=== PATIENT | male | born 1980 | race Caucasian/White ===

== ENCOUNTER 2020-03-09 10:21 | Inpatient (IN) | payer OTHER ==
[~2020-03-09] VITALS: Ht 177.8 cm; Wt 62.8 kg
[2020-03-09] VITALS (7 sets, daily range): BP systolic 107–133; BP diastolic 69–85; PULSE 90–111; TEMP 98.2–99.4
[~2020-03-09 10:21] MED LIST: DARVOCET N; LEVAQUIN 5500 MG/TAB PO
--- NOTE | 2020-03-09 17:15 | NUR ---
Patient arrived to floor escorted by admissions. Patient was ambulatory and not in visible distress. Father at bedside. Patient is alert and oriented, plesant and cooperative with cares. Denies needs other than pain management, call light within reach.
[2020-03-09 20:10] LABS: COLLECTION METHOD CLEAN CATCH
[2020-03-09 20:17] LABS: MUCOUS Present /lpf; PH 7 (5-8); SQUAMOUS EPITHELIAL None Seen /hpf; URINE APPEARANCE Hazy; URINE BACTERIA None Seen /hpf; URINE BILIRUBIN Negative (NEGATIVE); URINE BLOOD Negative (NEGATIVE); URINE COLOR Yellow; URINE GLUCOSE Negative (NEGATIVE); URINE KETONE Negative (NEGATIVE); URINE LEUKOCYTE ESTERASE Negative (NEGATIVE); URINE NITRATE Negative (NEGATIVE); URINE PROTEIN(semi-quant) Negative (NEGATIVE); URINE RBC 0-2 /hpf; URINE UROBILINOGEN Negative (NEGATIVE)
--- NOTE | 2020-03-09 20:30 | NUR ---
Pt assessment completed and documented. Pt resting in bed at this time. Pt alert and oriented x4. Complaints of generalized sharp abdominal pain throughout abdomen. UNDERWRITING DIRECTOR infusing per orders along with IVF. IV to right forearm CDI. Bowel prep started. Pt denies any needs/concerns at this time. Call light within reach. Will continue to monitor.
[2020-03-09 21:13] LABS: CLOSTRIDIUM DIFF A/B NEG; CLOSTRIDIUM DIFF A/B INTERP No C.diff present
[2020-03-09 21:56] LABS: CALCIUM 8.1 mg/dL (8.4-10.2); CREATININE, serum 0.65 (0.66-1.25); POTASSIUM 3.6 mmol/L (3.4-5.0)
[2020-03-10] VITALS (12 sets, daily range): BP systolic 91–106; BP diastolic 51–75; PULSE 71–100; TEMP 97.6–98.8
--- NOTE | 2020-03-10 00:36 | NUR ---
BLASTING HELPER adjusted at this time per orders from CARLOS Cardenas
--- NOTE | 2020-03-10 06:03 | NUR ---
Pt completed bowel prep earlier this morning. Stools currently watery and clear. PRN zofran given x1 for nausea. Complaints of abdominal pain overnight. TUMBLING AND ROLLING SUPERVISOR infusing per orders. IVF infusing per orders. Pt denies any needs/concerns. Call light within reach
[2020-03-10 06:37] LABS: HEMATOCRIT 43.6 % (42.0-52.0); HEMOGLOBIN 14.6 g/dl (13.5-18.0); MEAN CELL VOLUME 92 fl (80.0-100.0); MEAN CORPUSCULAR HEMOGLOBIN 31 pg (27.0-31.0); MEAN CORPUSCULAR HGB CONC 34 g/dl (33.0-37.0); MEAN PLATELET VOLUME 10.1 fl (7.4-10.4); PLATELET COUNT 335 K/mm3 (130-400); RED BLOOD COUNT 4.76 M/mm3 (4.20-5.60); REDCELL DISTRIBUTION WIDTH-CV 13.7 % (11.5-14.5)
[2020-03-10 06:54] LABS: ALBUMIN 2.8 gm/dL (3.5-5.0); BILIRUBIN,TOTAL 1.4 mg/dL (0.0-1.0); CALCIUM 7.8 mg/dL (8.4-10.2); CREATININE, serum 0.72 (0.66-1.25); MAGNESIUM 1.7 mg/dL (1.6-2.3); POTASSIUM 3.4 mmol/L (3.4-5.0); TOTAL PROTEIN 5.9 gm/dL (6.4-8.2)
[2020-03-10 07:07] LABS: C-REACTIVE PROTEIN 19.3 mg/dL (0.0-0.9)
[2020-03-10 07:23] LABS: BAND 40 % (0-10); EOSINOPHIL 7 % (0-4); LYMPHOCYTE 20 % (20.0-51.0); NEUTROPHILS 25 % (42.0-75.2); PLATELET ESTIMATE NORMAL (NORMAL)
--- NOTE | 2020-03-10 08:16 | NUR ---
Pt assessment complete. Pt laying in bed upon entry, he is drowsy but arouses to voice. He reports continued pain, PROCESSING OPERATOR helping. No N/V reported. Continues to take bowel prep. POC discussed with patient who verbalizes understanding. No needs at this time. Call light within reach.
--- NOTE | 2020-03-10 10:43 | NUR ---
First visit from the digital content coordinator. No needs right now.
--- NOTE | 2020-03-10 13:37 | NUR ---
BRO met with the patient to discuss discharge plan. The patient lives in [place] with his roommates. His father, Levar (ph#[phone]), lives in [place]. He was in [place] for an appointment with his PCP, Dr. Al De La Torre. He reports independence with ADLs and does not have any DME. He receives his medications at [facility]. He reports difficulties affording his meds. The patient is self pay. The patient states that he used to be on disability and have Medicaid, but wanted to work and lost his Medicaid. He states that he is not working now and just re-applied for Medicaid last week at [facility]. BRO presented and explained the Release of Information Forms for Medicaid. The patient signed the forms. BRO updated and provided the forms to Financial Counselor, Katheryn. The patient does not have a DPOA-HC in EMR, but he states that he does have one completed and that he designated his father. He is unsure of where the forms are. The patient is not . He states that he has one child that is [id number]. He states that his mother, Princess, is still alive, but that she is irrelevant and he is not in-contact with her. BRO discussed GoodRx and provided him with a GoodRx discount card. The patient plans to return back to his home in [place] upon discharge. BRO contacted and reviewed the d/c plan with the patient's father, Levar. Levar states that the patient has been in the hospital for awhile now and thinks he will end up being here for a bit too. Levar has no concerns with the patient returning back home, when ready to d/c. Levar confirms that he is the patient's DPOA-HC and that he has the forms somewhere. BRO to continue to follow.
--- NOTE | 2020-03-10 14:50 | NUR ---
Pt down to EGD/Colon at this time.
--- NOTE | 2020-03-10 17:52 | NUR ---
Pt had EGD/Colonoscopy this afternoon. Back on LABORATORY CHEMIST after procedure, continues to have pain 4-7/10. Pt requesting food immediately after procedure. Raymond diet ordered per Dr. palacios. Pt has no other needs at this time. Call light within reach.
--- NOTE | 2020-03-10 19:33 | NUR ---
Pt was lie down on his bed when this nurse went for a bedside handover. Pt looks distress, ELEVATOR SERVICE MECHANIC pump running, and asked for cookies if he can have some. No other needs at this time, will keep monitoring.
--- NOTE | 2020-03-10 22:10 | NUR ---
Pt assessment completed and charted, alert, oriented, NC on 2 lit. BRICK POINTER pump is running without complications, pt stated he always has pain 5/10 even after getting a pain meds. Meds provided as per JUL, tolertaed well. Pt is settled on his bed, call light is on reach. No further needs at this time.
[2020-03-11] VITALS (9 sets, daily range): BP systolic 97–119; BP diastolic 56–80; PULSE 71–84; TEMP 98–98.4
--- NOTE | 2020-03-11 06:02 | NUR ---
Pt slept most of the night. Meds provided as per JUL, PHOTO EQUIPMENT TECHNICIAN pump is running. No further needs at this time.
[2020-03-11 06:27] LABS: BASO # 0.1 (0.0-0.2); BASO % 0.4 % (0.0-2.0); EOS # 0.1 (0.0-0.7); EOS % 0.9 % (0-4.0); GRAN # 12.8 (1.4-6.5); GRAN % 85.7 % (42.2-75.2); HEMATOCRIT 43.1 % (42.0-52.0); HEMOGLOBIN 14.2 g/dl (13.5-18.0); LYMPH # 0.6 (1.2-3.4); LYMPH % 4.1 % (20.0-51.0); MEAN CELL VOLUME 93 fl (80.0-100.0); MEAN CORPUSCULAR HEMOGLOBIN 31 pg (27.0-31.0); MEAN CORPUSCULAR HGB CONC 33 g/dl (33.0-37.0); MEAN PLATELET VOLUME 9.9 fl (7.4-10.4); MONO # 1.2 (0.1-0.6); MONO % 8.1 % (1.7-9.3); PLATELET COUNT 379 K/mm3 (130-400); RED BLOOD COUNT 4.66 M/mm3 (4.20-5.60); REDCELL DISTRIBUTION WIDTH-CV 13.7 % (11.5-14.5)
[2020-03-11 06:39] LABS: ALBUMIN 2.7 gm/dL (3.5-5.0); BILIRUBIN,TOTAL 0.5 mg/dL (0.0-1.0); CALCIUM 7.6 mg/dL (8.4-10.2); CREATININE, serum 0.57 (0.66-1.25); POTASSIUM 3.8 mmol/L (3.4-5.0); TOTAL PROTEIN 5.7 gm/dL (6.4-8.2)
--- NOTE | 2020-03-11 07:02 | NUR ---
Lying in bed in supine position. Rates pain 6/10 in abd, uses ELECTRONIC MUSICAL INSTRUMENT REPAIRER as needed. Patient denies any additional needs or concerns at this time.
--- NOTE | 2020-03-11 10:00 | NUR ---
Patient assisted in shower, IV fluids and ASSORTMENT PLANNER paused. Patient independent in all cares for shower and oral care. Patient returns to bed when done. Reconnected to fluids and ASSORTMENT PLANNER. Rates pain 5/10 in abd. Provided with fresh gatorade. Denies additional needs at this time.
--- NOTE | 2020-03-11 15:18 | NUR ---
Patient to receive Entyvio infusion. Pharmacist was in and spoke with patient regarding potential side effects and the medication in general. Infusion started at this time. This nurse at bedside with the patient. NS and Dilaudid CARE DIRECTOR disconnected while Entyvio infuses.
--- NOTE | 2020-03-11 15:55 | NUR ---
Entyvio infusion complete. Patient denies feeling any adverse reactions. Patient says that he feels good. Reconnected to NS and Dilaudid UROLOGIC NURSE. Denies additional needs at this time.
--- NOTE | 2020-03-11 17:52 | NUR ---
Patient reports having about 5-6 liquidy stools today. Pain has been at about 5-6/10 through day. Continues on Dilaudid CHIEF DIGITAL MEDIA OFFICER. Feels that he did well with the Entyvio, no known reactions. Denies further concerns or needs currently.
--- NOTE | 2020-03-11 20:30 | NUR ---
Pt assessment completed and documented. Pt resting in bed at this time. Alert and oriented x4. Complaints of 5/10 sharp abdominal pain that pt states "is getting better". ELECTROMYOGRAPHIC TECHNICIAN infusing per orders. Scheduled roxicodone given per orders. IV to right forearm CDI. Tele on. Pt denies any needs/ concerns. Call light within reach. Will continue to monitor
[2020-03-12] VITALS (7 sets, daily range): BP systolic 114–137; BP diastolic 73–98; PULSE 68–77; TEMP 97.6–99.1
--- NOTE | 2020-03-12 04:56 | NUR ---
Gave scheduled solumedrol at this time. Pt awake in bed stating he has not hardly slept tonight due to worsening pain and frequent stools. States he has been having 3 to 4 stools an hour since 2300 last night. Pt rating pain 7/10 this morning. Pt given pepsi and saltines per his request. CYBER LEGAL ADVISOR infusing per orders. Denies any other needs/concerns at this time. Call light within reach.
[2020-03-12 06:53] LABS: HEMATOCRIT 39.8 % (42.0-52.0); HEMOGLOBIN 13.4 g/dl (13.5-18.0); MEAN CELL VOLUME 92 fl (80.0-100.0); MEAN CORPUSCULAR HEMOGLOBIN 31 pg (27.0-31.0); MEAN CORPUSCULAR HGB CONC 34 g/dl (33.0-37.0); MEAN PLATELET VOLUME 10.3 fl (7.4-10.4); PLATELET COUNT 370 K/mm3 (130-400); RED BLOOD COUNT 4.31 M/mm3 (4.20-5.60); REDCELL DISTRIBUTION WIDTH-CV 13.5 % (11.5-14.5)
[2020-03-12 07:00] LABS: CALCIUM 7.8 mg/dL (8.4-10.2); CREATININE, serum 0.59 (0.66-1.25); POTASSIUM 3.8 mmol/L (3.4-5.0)
[2020-03-12 08:33] LABS: BAND 22 % (0-10); LYMPHOCYTE 5 % (20.0-51.0); NEUTROPHILS 67 % (42.0-75.2); PLATELET ESTIMATE NORMAL (NORMAL)
[2020-03-12] MEDS ORDERED: ALBUTEROL1.25 MG/3 IH (10:12)
[2020-03-12] MEDS ORDERED: ASPIRIN 81M81 MG/TA2 PO (10:13)
[2020-03-12] MEDS ORDERED: ELIQUIS 5MG PO (10:13)
[2020-03-12] MEDS ORDERED: NORVASC2.5 MG PO (10:13)
[2020-03-12] MEDS ORDERED: LIPITOR 40MG TA40 MG PO (10:13)
[2020-03-12] MEDS ORDERED: COREG12.5 MG PO (10:14)
[2020-03-12] MEDS ORDERED: MASON NATURAL2000 IU PO (10:14)
[2020-03-12] MEDS ORDERED: ZYRTEC5 MG PO (10:14)
[2020-03-12] MEDS ORDERED: ONE-A-DAY ESSE1 EACH PO (10:15)
[2020-03-12] MEDS ORDERED: TRULICITY1.5 MG/0.5 SQ (10:15)
[2020-03-12] MEDS ORDERED: PROZAC 20MG20 MG PO (10:15)
[2020-03-12] MEDS ORDERED: IMODIUM 2MG CAPS2 MG PO (10:16)
[2020-03-12] MEDS ORDERED: FLONASEALLERGY NS (10:16)
[2020-03-12] MEDS ORDERED: GLUCOTROL XL10 MG PO (10:16)
[2020-03-12] MEDS ORDERED: MASON NATURAL1200 MG PO (10:18)
[2020-03-12] MEDS ORDERED: PROTONIX 40MG T40 MG PO (10:18)
[2020-03-12] MEDS ORDERED: KLOR-CON SPRIN10 MEQ PO (10:18)
[2020-03-12] MEDS ORDERED: NATURAL E400 IU PO (10:19)
--- NOTE | 2020-03-12 11:12 | NUR ---
Assessment completed, alert/oriented, vital signs stable, pain is moderate 5/10 but is being controlled fairly well by PAINT PREP TECHNICIAN per patients report, Hospitalist is making some changes to pain management regimen and POC discussed with the patient, abdomen is soft and BS hyperactive, patient reports frequent loose stools over night, he is tolerating PO intake and bland diet well, heart RRR, lungs CTA/ noresp.difficulty, denies other needs at this time will continue to monitor
--- NOTE | 2020-03-12 18:55 | NUR ---
Patient is tolerating diet advancement well, pain med regimen was changed today and FIELD MARKETER was discontinue he is doing well with changes
--- NOTE | 2020-03-12 19:48 | NUR ---
Pt assessment completed and documented. Pt resting in bed at this time watching TV. Pt states he is tolerating diet well. Pt reports good fluid intake. States he is having 2 to 3 bowel movements an hour. Reporting 4/10 pain to his abdomen. PRN dilaudid given by dayshift RN with some relief from pain. Pt denies any needs/ concerns at this time. Call light within reach. Will continue to monitor.
[2020-03-13 03:48] VITALS: BP 125/84; PULSE 60; TEMP 97.9
--- NOTE | 2020-03-13 06:10 | NUR ---
PRN and sheduled pain medication given per orders throughout the night for reports of abdominal pain. Pt continues to have frequent loose stools. Currently resting in bed. Call light within reach
[2020-03-13 06:57] LABS: BASO % 0.3 % (0.0-2.0); GRAN # 10.9 (1.4-6.5); GRAN % 85.1 % (42.2-75.2); HEMATOCRIT 42.4 % (42.0-52.0); HEMOGLOBIN 14.2 g/dl (13.5-18.0); LYMPH # 0.6 (1.2-3.4); LYMPH % 4.4 % (20.0-51.0); MEAN CELL VOLUME 92 fl (80.0-100.0); MEAN CORPUSCULAR HEMOGLOBIN 31 pg (27.0-31.0); MEAN CORPUSCULAR HGB CONC 34 g/dl (33.0-37.0); MEAN PLATELET VOLUME 10.2 fl (7.4-10.4); MONO # 1.2 (0.1-0.6); MONO % 9.5 % (1.7-9.3); PLATELET COUNT 403 K/mm3 (130-400); RED BLOOD COUNT 4.59 M/mm3 (4.20-5.60); REDCELL DISTRIBUTION WIDTH-CV 13.5 % (11.5-14.5)
[2020-03-13 07:15] LABS: ALBUMIN 3.2 gm/dL (3.5-5.0); BILIRUBIN,TOTAL 0.6 mg/dL (0.0-1.0); C-REACTIVE PROTEIN 3.5 mg/dL (0.0-0.9); CALCIUM 8.4 mg/dL (8.4-10.2); CREATININE, serum 0.58 (0.66-1.25); POTASSIUM 4.2 mmol/L (3.4-5.0); TOTAL PROTEIN 6.6 gm/dL (6.4-8.2)
--- NOTE | 2020-03-13 08:01 | NUR ---
Report given to BLANK Yuan
[2020-03-13 08:31] VITALS: BP 129/86; PULSE 74; TEMP 98.3
--- NOTE | 2020-03-13 09:00 | NUR ---
Patient alert and oriented. complained of abdominal pain. gave dilaudid abd roxicodone for pain. Adequate liquid intake. Patient ambulate well around in the room. No further concern at this time.
[2020-03-13 11:56] VITALS: BP 125/89; PULSE 67; TEMP 98.1
--- NOTE | 2020-03-13 15:39 | NUR ---
Patient alert and oriented. continue to complain of abdominal pain. Dilaudid 0.5mg frequency was changed from Q2H to Q6H. Patient agree to this changes. Patient mention he is doing better today. Patient had a shower today. tolerate diet well. continue to have constant diarrhea. ambulate independently in the room. Resting in bed at this time
[2020-03-13 17:15] VITALS: BP 134/89; PULSE 85; TEMP 98
--- NOTE | 2020-03-13 18:48 | NUR ---
IV fluid held because patient is drinking adequate fluid. patient report he had over 10 diarrhea this shift.
[2020-03-13 20:00] VITALS: BP 144/90; PULSE 76; TEMP 98.7
--- NOTE | 2020-03-13 20:30 | NUR ---
Initial shift assessment done- states abd pain 11/21,,understands next pain meds at around 10pm- pt states that is fine--wants the roxicodone and Dilaudid given together so he can sleep--has been having numerous watery,loose stools.
[2020-03-13 23:36] VITALS: BP 131/85; PULSE 75; TEMP 97.9
[2020-03-14 03:32] VITALS: BP 113/82; PULSE 71; TEMP 97.8
--- NOTE | 2020-03-14 05:32 | NUR ---
Has been resting fair throughout the night- had numerous liquid/watery stools during the night. Was medicated for abd pain x2 with Dilaudid/Roxicodone combination
[2020-03-14 06:43] LABS: BASO % 0.2 % (0.0-2.0); GRAN # 10.6 (1.4-6.5); GRAN % 84.7 % (42.2-75.2); HEMOGLOBIN 13.7 g/dl (13.5-18.0); LYMPH # 0.7 (1.2-3.4); LYMPH % 5.2 % (20.0-51.0); MEAN CELL VOLUME 92 fl (80.0-100.0); MEAN CORPUSCULAR HEMOGLOBIN 31 pg (27.0-31.0); MEAN CORPUSCULAR HGB CONC 33 g/dl (33.0-37.0); MEAN PLATELET VOLUME 9.7 fl (7.4-10.4); MONO # 1.2 (0.1-0.6); MONO % 9.3 % (1.7-9.3); PLATELET COUNT 451 K/mm3 (130-400); RED BLOOD COUNT 4.44 M/mm3 (4.20-5.60); REDCELL DISTRIBUTION WIDTH-CV 13.6 % (11.5-14.5)
[2020-03-14 06:45] LABS: CALCIUM 8.1 mg/dL (8.4-10.2); CREATININE, serum 0.59 (0.66-1.25)
[2020-03-14 08:51] VITALS: BP 112/74; PULSE 85; TEMP 98.3
[2020-03-14 11:28] VITALS: BP 124/80; PULSE 75; TEMP 98
[2020-03-14 16:19] VITALS: BP 126/83; PULSE 78; TEMP 98.9
[2020-03-14 19:03] VITALS: BP 135/92; PULSE 77; TEMP 98.9
--- NOTE | 2020-03-14 19:27 | NUR ---
Patient alert and oriented. Continue to complain of abdominal pain. recieve oxicodone and dilaudid for pain. LUIS Ambrocio report that patient will not be transferred at this time. Patient will be monitored for improvement. Imodium was started. One dose was given to patien this shift. Patient ambulating fine on his room.
--- NOTE | 2020-03-14 21:00 | NUR ---
Initial shift assessment done- pt just back from the bathroom- getting very discouraged, states the abd pain is not under control-states 02/21 at this time, having a couple liquid stools every hour--states immodium has never helped-- will call nurse practitioner to see about pain meds more frequent-- did get the dilaudid every 4 hours instead of every 8hr,, pt very appreciative
[2020-03-14 23:48] VITALS: BP 118/76; PULSE 85; TEMP 98.1
[2020-03-15 04:00] VITALS: BP 116/83; PULSE 70; TEMP 98.4
--- NOTE | 2020-03-15 05:10 | NUR ---
Dilaudid given at this time for abd pain 10/22- did have numerous watery/liquid stools during the night. Drinking good amounts of fluids/gatorade. States was able to get more sleep last night since his pain was under better control-
[2020-03-15 06:57] LABS: BASO % 0.2 % (0.0-2.0); GRAN # 7.6 (1.4-6.5); GRAN % 84.8 % (42.2-75.2); HEMATOCRIT 40.1 % (42.0-52.0); HEMOGLOBIN 13.6 g/dl (13.5-18.0); LYMPH # 0.5 (1.2-3.4); LYMPH % 5.9 % (20.0-51.0); MEAN CELL VOLUME 93 fl (80.0-100.0); MEAN CORPUSCULAR HEMOGLOBIN 31 pg (27.0-31.0); MEAN CORPUSCULAR HGB CONC 34 g/dl (33.0-37.0); MEAN PLATELET VOLUME 9.4 fl (7.4-10.4); MONO # 0.7 (0.1-0.6); MONO % 8.2 % (1.7-9.3); PLATELET COUNT 410 K/mm3 (130-400); RED BLOOD COUNT 4.33 M/mm3 (4.20-5.60); REDCELL DISTRIBUTION WIDTH-CV 13.7 % (11.5-14.5)
--- NOTE | 2020-03-15 07:00 | NUR ---
Report received from BLANK Tang. PT in bed resting, denies needs, will continue to monitor.
[2020-03-15 07:07] LABS: CALCIUM 8.1 mg/dL (8.4-10.2); CREATININE, serum 0.55 (0.66-1.25); POTASSIUM 4.2 mmol/L (3.4-5.0)
[2020-03-15 07:26] LABS: C-REACTIVE PROTEIN 1.2 mg/dL (0.0-0.9)
[2020-03-15 08:33] VITALS: BP 135/84; PULSE 90; TEMP 98.6
--- NOTE | 2020-03-15 10:00 | NUR ---
Assessment charted. PT resting in bed, has been resting iwth eyes closed off and on but pt states he doesn't think he slept at all last night or this am. Diaphoretic, still having ltos of output but does not feel imodium helps him at all. BS hyperactive. INT to RFA. Will continue mandy onitor.
[2020-03-15 11:23] VITALS: BP 126/87; PULSE 75; TEMP 98
[2020-03-15 17:01] VITALS: BP 124/83; PULSE 77; TEMP 98.2
--- NOTE | 2020-03-15 18:14 | NUR ---
Pt continues to have pain at 8 or 9/10, stools continue at 3/4 per hour. PRN pain meds given over shift. Will give bedside shift report to nightshift nurse who will resume care.
[2020-03-15 19:49] VITALS: BP 134/86; PULSE 85; TEMP 98.1
--- NOTE | 2020-03-15 20:18 | NUR ---
Pt assessment completed and documented. Pt ambulating in room at this time requesting shower. Pt alert and oriented x4. Complaints of 8/10 pain to abdomen. INT to right forearm CDI. INT wrapped at this time so pt can shower. Linens changed. Pt denies any other needs/concerns. Call light within reach. Will continue to monitor.
[2020-03-16] VITALS: BP 125/80; PULSE 78; TEMP 98.1
[2020-03-16 04:00] VITALS: BP 130/90; PULSE 50; TEMP 98.1
--- NOTE | 2020-03-16 05:21 | NUR ---
Pt states he continues to have frequent stools. PRN diluadid and scheduled roxicodone given for abdominal pain per orders overnight. Currently resting in bed. Call light within reach
[2020-03-16 07:06] VITALS: BP 123/80; PULSE 74; TEMP 98.2
--- NOTE | 2020-03-16 09:29 | NUR ---
Pt awake and alert upon entry, has C/O pain and medications were given for relief, no other issues noted. Shift assessments complete, left Pt call light in reach, bed in lowest position.
[2020-03-16 11:43] VITALS: BP 125/77; PULSE 79; TEMP 97.5
--- NOTE | 2020-03-16 14:41 | NUR ---
BRO met with the patient to follow up. The patient states that he is feeling like crap. He states that he still plans on returning back to his home in [place] upon discharge and will continue to follow up with his provider, Dr. De La Torre. BRO to continue to follow.
[2020-03-16 17:37] VITALS: BP 137/89; PULSE 76; TEMP 98.1
--- NOTE | 2020-03-16 18:02 | NUR ---
Pt transferred to [facility]. Report given to BLANK Landis. Pt transported via [facility].
--- NOTE | 2020-03-17 09:45 | NUR ---
The patient was transferred to [facility] in [place] yesterday, 03/16. No additional needs at this time.
== END 2020-03-16 18:04 | disposition critical access hospital (66) | DRG 386 ==
LOC: MEDICAL 16:49
PROVIDERS: Internal Medicine Gastroenterology; Nurse Practitioner Family; Physician Assistant; Student in an Organized Health Care Education/Training Program; ADMIT Hospitalist
PROC: 0DJ08ZZ Inspection of Upper Intestinal Tract, Via Natural or Artificial Opening Endoscopic (ICD-10-PCS; principal; 2020-03-10 14:00)
PROC: 0DBN8ZX Excision of Sigmoid Colon, Via Natural or Artificial Opening Endoscopic, Diagnostic (ICD-10-PCS; 2020-03-10 14:00)
DX: K50.111 Crohn's disease of large intestine with rectal bleeding (principal); E87.1 Hypo-osmolality and hyponatremia; B37.0 Candidal stomatitis; B37.81 Candidal esophagitis; Z20.828 Contact with and (suspected) exposure to other viral communicable diseases; J45.909 Unspecified asthma, uncomplicated; T38.0X5A Adverse effect of glucocorticoids and synthetic analogues, initial encounter; D72.829 Elevated white blood cell count, unspecified; Z87.891 Personal history of nicotine dependence
CPT/HCPCS: 99223-AI; 99232-AI; 99233-AI; 99239; C9113; J1170; J2405; J2704; J2920; J3380; J7030; J7050; Q9967